=== PATIENT | female | born 1955 | race Caucasian/White ===

== ENCOUNTER → 2018-06-25 07:01 | Outpatient (CLI) | payer OTHER, SELFPAY ==
[2018-06-25 10:34] LABS: Erythrocyte Sedimentation Rate 19 mm/hr (0-30)
[2018-06-25 10:36] LABS: Absolute Lymphocyte Count 3.14 X10^3/ul (0.83-4.51); Absolute Neutrophil Count 2.2 X10^3/uL (2.0-7.7); Basophil# 0.06 X10^3/uL; Eosinophil# 0.43 X10^3/uL; Eosinophils% 6.9 % (0-5); Hematocrit 41.2 % (37-47); Hemoglobin 14.2 g/dl (12.0-15.0); Lymphocyte # 3.14 X10^3/ul (4.0); Lymphocyte % 50.6 % (19-41); Mean Corp Hgb Conc 34.5 g/gl (32-36); Mean Corpuscular Volume 86.9 fL (81-99); Mean Platelet Vol. 10.2 fl (6.2-12.0); Monocyte# 0.38 X10^3/uL; Monocyte% 6.1 % (0-10); Neutrophil % 35.4 % (47-70); Platelet Count 349 K/mm3 (150-450); RBC Distribution Width CV 12.7 % (11.6-14.6); RBC Distribution Width SD 39.6 fl (35.1-43.9); Red Blood Count 4.74 M/mm3 (4.2-5.4); White Blood Count 6.2 K/mm3 (4.4-11.0)
[2018-06-25 10:37] LABS: POSITIVE COUNT NO; POSITIVE DIFFERENTIAL NO; POSITIVE MORPHOLOGY NO
[2018-06-25 10:48] LABS: ALB/GLOB Ratio 0.9 RATIO (0.9-2.4); AST(SGOT) 18 U/L (15-37); Alanine Aminotransfer ALT/SGPT 28 U/L (13-56); Albumin, Serum 3.5 g/dL (3.2-5.0); Alkaline Phosphatase 65 U/L (45-117); Amylase 29 U/L (25-115); Anion Gap 9 (5-15); BUN 12 mg/dL (7-18); BUN/Creat Ratio 15.9 RATIO (10-20); Calcium,Total 9.3 mg/dL (8.5-10.1); Chloride 105 mmol/L (98-107); Cholesterol 218 mg/dL (200); Creatinine, Serum 0.76 mg/dL (0.55-1.02); EST Glomerular Filtration Rate 82 mL/min (>60); Est Glom Filt Rate - Afr Amer 100 mL/min (>60); Globulin 3.7 g/dL (2.2-4.2); Glucose 81 mg/dL (74-106); High Density Lipoprotein 49 mg/dL; Lipase 170 U/L (73-393); Potassium 3.9 mmol/L (3.5-5.1); Protein, Total 7.2 g/dL (6.4-8.2); Sodium Level 141 mmol/L (136-145); Triglycerides 211 mg/dL; Very Low Density Lipoprotein 42 mg/dL (5-40)
[2018-06-28 20:13] LABS: Endomysial Antibody IgA Negative (Negative)
[2018-06-29 13:12] LABS: Deamidated Gliadin IgA 3 units (0-19); Deamidated Gliadin IgG 3 units (0-19); Immunoglobulin A 233 mg/dL (87-352); t-Transglutaminase IgA <2 U/mL (0-3)
[2018-06-29 16:09] LABS: Beef <0.10 kU/L (Class 0); Corn <0.10 kU/L (Class 0); Egg, Whole <0.10 kU/L (Class 0); Milk (Cow) <0.10 kU/L (Class 0); Peanut <0.10 kU/L (Class 0); Pork <0.10 kU/L (Class 0); Soybean <0.10 kU/L (Class 0); Wheat <0.10 kU/L (Class 0)
[2018-06-30 11:00] LABS: Chocolate <0.10 kU/L (Class 0)
== END ==
PROVIDERS: Family Provider Family Medicine; PCP Family Medicine; Visit Provider Family Medicine
DX: E03.9 Hypothyroidism, unspecified (principal); E78.00 Pure hypercholesterolemia, unspecified; R14.0 Abdominal distension (gaseous)
CPT/HCPCS: 36415; 80053; 80061; 82150; 82784; 83516; 83690; 84443; 85025; 85652; 86003; 86005; 86255

== ENCOUNTER → 2018-07-20 14:05 | Outpatient (CLI) | payer OTHER, SELFPAY ==
[2018-07-23 14:21] LABS: HPV Reflexed? NOT INDICATED
== END ==
PROVIDERS: Visit Provider Obstetrics & Gynecology
DX: Z12.4 Encounter for screening for malignant neoplasm of cervix (principal)
CPT/HCPCS: 88175; G0145

== ENCOUNTER → 2018-10-15 07:11 | Outpatient (CLI) | payer OTHER, SELFPAY ==
--- NOTE | 2018-10-15 07:15 | BI_ITS ---
MAMMOGRAPHY - BILATERAL SCREENING REASON FOR EXAM: Female, 63 years old. Routine annual screening examination. PERTINENT HISTORY: Non-contributory. TECHNIQUE: Digital bilateral breast jerica (3D mammographic acquisition) in the CC and MLO projections. 2-D mediolateral oblique (MLO) and craniocaudad (CC) views of both breasts were obtained. CAD: Full Field Digital Mammography with Computer Added Detection was performed. COMPARISON: Comparison is made with prior study dated the 2016 and August 21, 2016. FINDINGS: Breast Composition: There are scattered areas of fibroglandular density. There are no dominant masses or suspicious calcifications. Stable small bilateral axillary lymph nodes. No other significant abnormalities are identified. There has been no significant change since the prior study. BI/SCREENING MAMM (CAD), BILAT IMPRESSION: Stable bilateral screening mammogram. Yearly follow-up mammogram recommended. (A) ASSESSMENT CATEGORY: BIRADS Category 2: Benign. A letter regarding these results will be sent to the patient by the facility within 30 days. Approximately 10% of breast cancers are not detected by mammography. A normal mammogram should not delay biopsy of a clinically suspicious abnormality. [id number] Electronically Signed: Ronn Groves MD at 9:32 EST Tel [phone], Service support ,
== END ==
PROVIDERS: Family Provider Family Medicine; PCP Family Medicine; Referring Provider Obstetrics & Gynecology; Visit Provider Obstetrics & Gynecology
DX: Z12.31 Encounter for screening mammogram for malignant neoplasm of breast (principal)
CPT/HCPCS: 77063; 77067

== ENCOUNTER → 2019-07-01 | Outpatient (CLI) | payer OTHER, SELFPAY ==
[2019-07-01 10:36] LABS: Vitamin D,25 Hydroxy 21.3 ng/mL (29.95-100.01)
[2019-07-01 10:50] LABS: ALB/GLOB Ratio 0.9 RATIO (0.9-2.4); AST(SGOT) 17 U/L (15-37); Alanine Aminotransfer ALT/SGPT 25 U/L (13-56); Albumin, Serum 3.6 g/dL (3.2-5.0); Alkaline Phosphatase 69 U/L (45-117); Anion Gap 4 (5-15); BUN 16 mg/dL (7-18); Calcium,Total 9.3 mg/dL (8.5-10.1); Chloride 110 mmol/L (98-107); Cholesterol 238 mg/dL (200); Creatinine, Serum 0.84 mg/dL (0.55-1.02); EST Glomerular Filtration Rate 72 mL/min (>60); Est Glom Filt Rate - Afr Amer 88 mL/min (>60); Globulin 4.1 g/dL (2.2-4.2); Glucose 91 mg/dL (74-106); High Density Lipoprotein 56 mg/dL; Potassium 4.2 mmol/L (3.5-5.1); Protein, Total 7.7 g/dL (6.4-8.2); Sodium Level 141 mmol/L (136-145); T4 Free Direct 1.07 ng/dL (0.76-1.46); Thyroid Stim Hormone (TSH) 0.87 uIU/mL (0.358-3.74); Triglycerides 202 mg/dL; Very Low Density Lipoprotein 40 mg/dL (5-40)
== END | disposition home or self-care (01) ==
LOC: MTLAB 08:24
PROVIDERS: Family Provider Family Medicine; PCP Family Medicine; Referring Provider Family Medicine; Visit Provider Family Medicine
DX: E78.00 Pure hypercholesterolemia, unspecified (principal); E03.9 Hypothyroidism, unspecified; Z13.21 Encounter for screening for nutritional disorder
CPT/HCPCS: 36415; 80053; 80061; 82306; 84439; 84443

== ENCOUNTER → 2019-10-31 06:55 | Outpatient (CLI) | payer OTHER, SELFPAY ==
--- NOTE | 2019-10-31 06:59 | BI_ITS ---
MAMMOGRAPHY - BILATERAL SCREENING REASON FOR EXAM: Female, 64 years old. Routine annual screening examination. PERTINENT HISTORY: Non-contributory. TECHNIQUE: Digital bilateral breast gary (3D mammographic acquisition) in the CC and MLO projections. 2-D mediolateral oblique (MLO) and craniocaudad (CC) views of both breasts were obtained. CAD: Full Field Digital Mammography with Computer Added Detection was performed. COMPARISON: Comparison is made with prior examination dated October 15, 2018 and September 01, 2017. FINDINGS: Breast Composition: There are scattered areas of fibroglandular density. There are no dominant masses or suspicious calcifications. No other significant abnormalities are identified. There has been no significant change since the prior study. BI/SCREEN MAMM (CAD) W/GARY BILAT IMPRESSION: Stable bilateral screening mammogram. Yearly follow-up mammogram recommended. (A) ASSESSMENT CATEGORY: BIRADS Category 1: Negative. A letter regarding these results will be sent to the patient by the facility within 30 days. Approximately 10% of breast cancers are not detected by mammography. A normal mammogram should not delay biopsy of a clinically suspicious abnormality. [id number] Electronically Signed: Ronn Groves, at 8:26 EST , Service support ,
== END ==
PROVIDERS: Family Provider Family Medicine; PCP Family Medicine; Referring Provider Obstetrics & Gynecology; Visit Provider Obstetrics & Gynecology
DX: Z12.31 Encounter for screening mammogram for malignant neoplasm of breast (principal)
CPT/HCPCS: 77063; 77067

== ENCOUNTER → 2020-07-02 | Outpatient (CLI) | payer OTHER, SELFPAY ==
[2020-07-02 13:00] LABS: Hematocrit 41.4 % (37-47); Hemoglobin 13.9 g/dL (12.0-15.0); Mean Corp Hgb Conc 33.6 g/dL (32-36); Mean Corpuscular Hgb 29.6 pg (27.0-32.0); Mean Corpuscular Volume 88.3 fL (81-99); Mean Platelet Vol. 10.4 fl (6.2-12.0); Platelet Count 303 K/mm3 (150-450); RBC Distribution Width CV 12.5 % (11.6-14.6); RBC Distribution Width SD 40.3 fl (35.1-43.9); Red Blood Count 4.69 M/mm3 (4.2-5.4); White Blood Count 6.1 K/mm3 (4.4-11.0)
[2020-07-02 13:33] LABS: AST(SGOT) 16 U/L (15-37); Alanine Aminotransfer ALT/SGPT 25 U/L (13-56); Albumin, Serum 3.6 g/dL (3.2-5.0); Alkaline Phosphatase 69 U/L (45-117); Anion Gap 8 (5-15); BUN 15 mg/dL (7-18); BUN/Creat Ratio 20.4 RATIO (10-20); Calcium,Total 9.5 mg/dL (8.5-10.1); Chloride 110 mmol/L (98-107); Cholesterol 205 mg/dL (200); Creatinine, Serum 0.73 mg/dL (0.55-1.02); EST Glomerular Filtration Rate 85 mL/min (>60); Est Glom Filt Rate - Afr Amer 102 mL/min (>60); Globulin 3.7 g/dL (2.2-4.2); Glucose 88 mg/dL (74-106); High Density Lipoprotein 52 mg/dL; Potassium 3.9 mmol/L (3.5-5.1); Protein, Total 7.3 g/dL (6.4-8.2); Sodium Level 144 mmol/L (136-145); Thyroid Stim Hormone (TSH) 0.22 uIU/mL (0.358-3.74); Triglycerides 161 mg/dL; Very Low Density Lipoprotein 32 mg/dL (5-40)
== END | disposition home or self-care (01) ==
LOC: MFPLAB 10:51
PROVIDERS: PCP Family Medicine; Referring Provider Family Medicine; Visit Provider Family Medicine
DX: E55.9 Vitamin D deficiency, unspecified (principal); E03.9 Hypothyroidism, unspecified; K44.9 Diaphragmatic hernia without obstruction or gangrene; E78.00 Pure hypercholesterolemia, unspecified
CPT/HCPCS: 36415; 80053; 80061; 82306; 84443; 85027

== ENCOUNTER → 2020-08-01 09:05 | Outpatient (CLI) | payer OTHER, SELFPAY | PROVIDERS: PCP Family Medicine; Referring Provider Internal Medicine Gastroenterology; Visit Provider Internal Medicine Gastroenterology | DX: Z11.59 Encounter for screening for other viral diseases (principal) | CPT/HCPCS: 87635; C9803; U0003 ==

== ENCOUNTER → 2021-03-20 07:37 | Outpatient (CLI) | payer OTHER, SELFPAY ==
--- NOTE | 2021-03-20 07:39 | BI_ITS ---
MAMMOGRAPHY - BILATERAL SCREENING REASON FOR EXAM: Female, 65 years old. Routine annual screening examination. PERTINENT HISTORY: Non-contributory. TECHNIQUE: Digital bilateral breast jerica (3D mammographic acquisition) in the CC and MLO projections. 2-D mediolateral oblique (MLO) and craniocaudad (CC) views of both breasts were obtained. CAD: Full Field Digital Mammography with Computer Added Detection was performed. COMPARISON: Comparison is made with prior study dated 04/30/2020 and 10/15/2018. FINDINGS: Breast Composition: There are scattered areas of fibroglandular density. There are no dominant masses or suspicious calcifications. Stable small benign-appearing bilateral axillary lymph nodes. No other significant abnormalities are identified. There has been no significant change since the prior study. BI/SCREENING MAMM (CAD), BILAT IMPRESSION: Stable bilateral screening mammogram. Yearly follow-up mammogram recommended. (A) ASSESSMENT CATEGORY: BIRADS Category 2: Benign. A letter regarding these results will be sent to the patient by the facility within 30 days. Approximately 10% of breast cancers are not detected by mammography. A normal mammogram should not delay biopsy of a clinically suspicious abnormality. [id number] Electronically Signed: Ronn Groves MD at 8:54 EDT , Service support ,
== END ==
PROVIDERS: PCP Family Medicine; Referring Provider Family Medicine; Visit Provider Family Medicine
DX: Z12.31 Encounter for screening mammogram for malignant neoplasm of breast (principal)
CPT/HCPCS: 77067

== ENCOUNTER → 2021-08-02 07:58 | Outpatient (CLI) | payer OTHER, SELFPAY ==
[2021-08-02 10:20] LABS: Vitamin D,25 Hydroxy 66.8 ng/mL
[2021-08-02 10:45] LABS: ALB/GLOB Ratio 0.9 RATIO (0.9-2.4); AST(SGOT) 16 U/L (15-37); Alanine Aminotransfer ALT/SGPT 20 U/L (13-56); Albumin, Serum 3.4 g/dL (3.2-5.0); Alkaline Phosphatase 75 U/L (45-117); Anion Gap 6 (5-15); BUN 15 mg/dL (7-18); Calcium,Total 9.5 mg/dL (8.5-10.1); Chloride 109 mmol/L (98-107); Cholesterol 215 mg/dL (200); Creatinine, Serum 0.84 mg/dL (0.55-1.02); EST Glomerular Filtration Rate 73 mL/min (>60); Est Glom Filt Rate - Afr Amer 88 mL/min (>60); Globulin 3.9 g/dL (2.2-4.2); Glucose 99 mg/dL (74-106); High Density Lipoprotein 57 mg/dL; Potassium 4.2 mmol/L (3.5-5.1); Protein, Total 7.3 g/dL (6.4-8.2); Sodium Level 141 mmol/L (136-145); T4 Free Direct 1.26 ng/dL (0.76-1.46); Thyroid Stim Hormone (TSH) 0.44 uIU/mL (0.358-3.74); Triglycerides 145 mg/dL; Very Low Density Lipoprotein 29 mg/dL (5-40)
== END ==
PROVIDERS: PCP Family Medicine; Referring Provider Family Medicine; Visit Provider Family Medicine
DX: E03.9 Hypothyroidism, unspecified (principal); E78.00 Pure hypercholesterolemia, unspecified; E55.9 Vitamin D deficiency, unspecified
CPT/HCPCS: 36415; 80053; 80061; 82306; 84439; 84443

== ENCOUNTER → 2021-08-14 09:17 | Outpatient (CLI) | payer OTHER, SELFPAY ==
--- NOTE | 2021-08-14 09:24 | BD_ITS ---
STUDY: DUAL ENERGY X-RAY ABSORPTIOMETRY / DXA REASON FOR EXAM: Female, 65 years old. Z780. The patient is postmenopausal. TECHNIQUE: Bone Mineral Density (BMD) measurements of lumbar spine and bilateral hips were obtained. COMPARISON: Comparison is made with prior examination dated 08/21/2016. FINDINGS: Lumbar Spine (L1-L4): g/cm2 (0.867) / T-score (-1.6) / Z-score (0.2) Findings are suggestive of osteopenia with a moderate fracture risk. Left Femur Total: g/cm2 (0.872) / T-score (-0.6) / Z-score (0.7) Left Femoral Neck: g/cm2 (0.710) / T-score (-1.3) / Z-score (0.3) Right Femur Total: g/cm2 (0.901) / T-score (-0.3) / Z-score (0.9) Right Femoral Neck: g/cm2 (0.763) / T-score (-0.8) / Z-score (0.8) The T-Scores on the most recent prior examination were: Lumbar Spine (L1-L4): There has been worsening of bone density since the previous examination. Left Femur Total: which represents a worsening of 2.6%. Right Femur Total: which represents a worsening of 1.9%. BD/Dexa Bone Density Study IMPRESSION: The patient is considered osteopenic as outlined below according to World Jackson Organization (WHO) criteria with a moderate fracture risk. There has been worsening of bone density since the previous examination. Reference Information: The T-score is the number of standard deviations above or below the standard which is normal for young adults at their peak bone mineral density. The World Health Organization (WHO) interprets the T-scores as follows: Above -1 Normal bone density Between -1 and -2.5 Osteopenia Equal to / or below -2.5 Osteoporosis As a practical clinical guideline, osteopenia may be graded as follows: Mild -1 through -1.5 Moderate -1.6 through -2.0 Severe -2.1 through -2.4 The Z-score is the number of standard deviations above or below age-matched controls. A Z-score of less than -1.5 would be considered abnormal. References: 1. NIH Osteoporosis and Related Bone Diseases www osteo.org 2. International Society for Clinical Densitometry www iscd.org 3. National Osteoporosis Foundation www nof.org Electronically Signed: Ronn Groves MD at 12:33 EDT , Service support ,
== END ==
PROVIDERS: PCP Family Medicine; Referring Provider Family Medicine; Visit Provider Family Medicine
DX: Z00.00 Encounter for general adult medical examination without abnormal findings (principal); Z78.0 Asymptomatic menopausal state
CPT/HCPCS: 77080

== ENCOUNTER → 2021-09-12 | Outpatient (CLI) | payer OTHER, SELFPAY ==
[2021-09-17 12:07] LABS: HPV APTIMA, High Risk Negative (Negative)
== END | disposition home or self-care (01) ==
LOC: LABSPEC 12:17
PROVIDERS: PCP Family Medicine; Visit Provider Obstetrics & Gynecology
DX: Z01.419 Encounter for gynecological examination (general) (routine) without abnormal findings (principal)
CPT/HCPCS: 87624; 88175; G0145

== ENCOUNTER → 2022-08-04 | Outpatient (CLI) | payer OTHER, SELFPAY ==
[2022-08-04 10:39] LABS: Vitamin D,25 Hydroxy 57.5 ng/mL
[2022-08-04 10:44] LABS: BUN 20 mg/dL (7-18); Creatinine, Serum 0.73 mg/dL (0.55-1.02); Glucose 96 mg/dL (74-106)
[2022-08-04 10:45] LABS: AST(SGOT) 18 U/L (15-37); Alanine Aminotransfer ALT/SGPT 25 U/L (13-56); Albumin, Serum 3.5 g/dL (3.2-5.0); Alkaline Phosphatase 68 U/L (45-117); Anion Gap 6 (5-15); BUN/Creat Ratio 27.3 RATIO (10-20); Calcium,Total 9.3 mg/dL (8.5-10.1); Chloride 111 mmol/L (98-107); Cholesterol 194 mg/dL (200); EST Glomerular Filtration Rate 84 mL/min (>60); Est Glom Filt Rate - Afr Amer 102 mL/min (>60); Globulin 3.5 g/dL (2.2-4.2); High Density Lipoprotein 56 mg/dL; Potassium 3.9 mmol/L (3.5-5.1); Sodium Level 142 mmol/L (136-145); T4 Free Direct 1.25 ng/dL (0.76-1.46); Thyroid Stim Hormone (TSH) 0.13 uIU/mL (0.358-3.74); Triglycerides 179 mg/dL; Very Low Density Lipoprotein 36 mg/dL (5-40)
== END | disposition home or self-care (01) ==
PROVIDERS: PCP Family Medicine; Visit Provider Family Medicine
DX: E78.00 Pure hypercholesterolemia, unspecified (principal); E03.9 Hypothyroidism, unspecified; E55.9 Vitamin D deficiency, unspecified
CPT/HCPCS: 36415; 80053; 80061; 82306; 84439; 84443

== ENCOUNTER → 2022-08-12 | Outpatient (CLI) | payer OTHER, SELFPAY ==
--- NOTE | 2022-08-12 16:42 | BI_ITS ---
MAMMOGRAPHY - BILATERAL SCREENING REASON FOR EXAM: Female, 66 years old. Routine annual screening examination. PERTINENT HISTORY: Non-contributory. TECHNIQUE: Digital bilateral breast gary (3D mammographic acquisition) in the CC and MLO projections. 2-D mediolateral oblique (MLO) and craniocaudad (CC) views of both breasts were obtained. CAD: Full Field Digital Mammography with Computer Added Detection was performed. COMPARISON: Comparison is made with prior study dated 03/20/2021 and 10/31/2019. FINDINGS: Breast Composition: There are scattered areas of fibroglandular density. There are no dominant masses or suspicious calcifications. Stable small benign-appearing bilateral axillary No other significant abnormalities are identified. There has been no significant change since the prior study. BI/SCRN MAMM (CAD)W/GARY BILAT IMPRESSION: Stable bilateral screening mammogram. Yearly follow-up mammogram recommended. (A) ASSESSMENT CATEGORY: BIRADS Category 2: Benign. A letter regarding these results will be sent to the patient by the facility within 30 days. Approximately 10% of breast cancers are not detected by mammography. A normal mammogram should not delay biopsy of a clinically suspicious abnormality. [id number] Electronically Signed: Ronn Groves MD at 8:37 EDT ,
== END | disposition home or self-care (01) ==
LOC: OPBI 08-13 07:05
PROVIDERS: PCP Family Medicine; Referring Provider Family Medicine; Visit Provider Family Medicine
DX: Z12.31 Encounter for screening mammogram for malignant neoplasm of breast (principal)
CPT/HCPCS: 77063; 77067

== ENCOUNTER → 2023-04-28 | Outpatient (CLI) | payer OTHER, SELFPAY ==
[2023-04-28 15:17] LABS: Absolute Lymphocyte Count 3.26 X10^3/uL (0.83-4.51); Absolute Neutrophil Count 3.5 X10^3/uL (2.0-7.7); Basophil# 0.09 X10^3/uL; Basophil% 1.2 % (0-1); Eosinophil# 0.24 X10^3/uL; Eosinophils% 3.1 % (0-5); Hematocrit 41.8 % (37-47); Hemoglobin 13.6 g/dL (12.0-15.0); Lymphocyte # 3.26 X10^3/ul (0.83-4.51); Lymphocyte % 42.6 % (19-41); Mean Corp Hgb Conc 32.5 g/dL (32-36); Mean Corpuscular Hgb 29.1 pg (27.0-32.0); Mean Corpuscular Volume 89.5 fL (81-99); Mean Platelet Vol. 10.1 fl (6.2-12.0); Monocyte# 0.57 X10^3/uL; Monocyte% 7.4 % (0-10); NRBC Flagged by Analyzer 0 % (0-5); Neutrophil # 3.49 X10^3/uL (2.7-7.7); Neutrophil % 45.6 % (47-70); Platelet Count 331 K/mm3 (150-450); RBC Distribution Width CV 12.7 % (11.6-14.6); RBC Distribution Width SD 41.6 fl (35.1-43.9); Red Blood Count 4.67 M/mm3 (4.2-5.4); White Blood Count 7.7 K/mm3 (4.4-11.0)
[2023-04-28 15:35] LABS: Erythrocyte Sedimentation Rate 14 mm/hr (0-30)
[2023-04-28 15:44] LABS: AST(SGOT) 18 U/L (15-37); Alanine Aminotransfer ALT/SGPT 23 U/L (13-56); Albumin, Serum 3.7 g/dL (3.2-5.0); Alkaline Phosphatase 68 U/L (45-117); Amylase 30 U/L (25-115); Anion Gap 5 (5-15); BUN 14 mg/dL (7-18); BUN/Creat Ratio 18.8 RATIO (10-20); Calcium,Total 9.4 mg/dL (8.5-10.1); Chloride 109 mmol/L (98-107); Creatinine, Serum 0.74 mg/dL (0.55-1.02); EST Glomerular Filtration Rate 83 mL/min (>60); Est Glom Filt Rate - Afr Amer 100 mL/min (>60); Globulin 3.6 g/dL (2.2-4.2); Glucose 76 mg/dL (74-106); Lipase 38 U/L (13-75); Protein, Total 7.3 g/dL (6.4-8.2); Sodium Level 141 mmol/L (136-145); Thyroid Stim Hormone (TSH) 0.12 uIU/mL (0.358-3.74)
[2023-04-29 16:33] LABS: T4 Free Direct 1.23 ng/dL (0.76-1.46)
[2023-04-30 05:07] LABS: H. Pylori Antibody (IgG) 0.16 (0.00-0.79)
[2023-04-30 10:27] LABS: Free T3 2.6 pg/mL (2.18-3.98)
[2023-05-02 00:06] LABS: Beef <0.10 kU/L (Class 0); Chocolate <0.10 kU/L (Class 0); Corn <0.10 kU/L (Class 0); Egg, Whole <0.10 kU/L (Class 0); Milk (Cow) <0.10 kU/L (Class 0); Peanut <0.10 kU/L (Class 0); Pork <0.10 kU/L (Class 0); Soybean <0.10 kU/L (Class 0); Wheat <0.10 kU/L (Class 0)
== END | disposition home or self-care (01) ==
LOC: MFPLAB 12:26
PROVIDERS: PCP Family Medicine; Visit Provider Family Medicine
DX: R10.9 Unspecified abdominal pain (principal); E03.9 Hypothyroidism, unspecified
CPT/HCPCS: 36415; 80053; 82150; 83690; 84439; 84443; 84480; 84481; 85025; 85652; 86003; 86005; 86677

== ENCOUNTER → 2023-04-30 | Outpatient (CLI) | payer OTHER, SELFPAY ==
[2023-05-05 14:19] LABS: Pancreatic Elastase, Fecal 95 (>200)
== END | disposition home or self-care (01) ==
LOC: MFPLAB 09:46
PROVIDERS: PCP Family Medicine; Visit Provider Family Medicine
DX: R19.5 Other fecal abnormalities (principal)
CPT/HCPCS: 82274; 82653; 83630; 87177; 87209; 87506

== ENCOUNTER → 2023-08-07 | Outpatient (CLI) | payer MEDICARE, SELFPAY ==
[2023-08-07 10:55] LABS: ALB/GLOB Ratio 0.9 RATIO (0.9-2.4); AST(SGOT) 13 U/L (15-37); Alanine Aminotransfer ALT/SGPT 24 U/L (13-56); Albumin, Serum 3.4 g/dL (3.2-5.0); Alkaline Phosphatase 72 U/L (45-117); Anion Gap 3 (5-15); BUN 15 mg/dL (7-18); BUN/Creat Ratio 19.2 RATIO (10-20); Chloride 111 mmol/L (98-107); Cholesterol 180 mg/dL (200); Creatinine, Serum 0.78 mg/dL (0.55-1.02); EST Glomerular Filtration Rate 78 mL/min (>60); Est Glom Filt Rate - Afr Amer 94 mL/min (>60); Free T3 2.6 pg/mL (2.18-3.98); Globulin 3.6 g/dL (2.2-4.2); Glucose 98 mg/dL (74-106); High Density Lipoprotein 50 mg/dL; Potassium 3.8 mmol/L (3.5-5.1); Sodium Level 137 mmol/L (136-145); T4 Free Direct 1.26 ng/dL (0.76-1.46); Thyroid Stim Hormone (TSH) 0.23 uIU/mL (0.358-3.74); Triglycerides 167 mg/dL; Very Low Density Lipoprotein 33 mg/dL (5-40)
== END | disposition home or self-care (01) ==
PROVIDERS: PCP Family Medicine; Visit Provider Family Medicine
DX: E03.9 Hypothyroidism, unspecified (principal); E78.00 Pure hypercholesterolemia, unspecified; M85.80 Other specified disorders of bone density and structure, unspecified site
CPT/HCPCS: 36415; 80053; 80061; 82306; 84439; 84443; 84481

== ENCOUNTER → 2023-08-27 | Outpatient (CLI) | payer MEDICARE, SELFPAY ==
--- NOTE | 2023-08-27 13:25 | BI_ITS ---
MAMMOGRAPHY - BILATERAL SCREENING REASON FOR EXAM: Female, 67 years old. Routine annual screening examination. PERTINENT HISTORY: Non-contributory. TECHNIQUE: Digital bilateral breast gary (3D mammographic acquisition) in the CC and MLO projections. 2-D mediolateral oblique (MLO) and craniocaudad (CC) views of both breasts were obtained. CAD: Full Field Digital Mammography with Computer Added Detection was performed. COMPARISON: Comparison is made with prior study dated August 12, 2022. FINDINGS: Breast Composition: There are scattered areas of fibroglandular density. There are no dominant masses or suspicious calcifications. No other significant abnormalities are identified. There has been no significant change since the prior study. BI/SCRN MAMM (CAD)W/GARY BILAT IMPRESSION: Stable bilateral screening mammogram. Yearly follow-up mammogram recommended. (A) ASSESSMENT CATEGORY: BIRADS Category 1: Negative. A letter regarding these results will be sent to the patient by the facility within 30 days. Approximately 10% of breast cancers are not detected by mammography. A normal mammogram should not delay biopsy of a clinically suspicious abnormality. [id number] Electronically Signed: Ronn Groves MD at 14:17 EST ,
--- NOTE | 2023-08-27 13:32 | BD_ITS ---
STUDY: DUAL ENERGY X-RAY ABSORPTIOMETRY / DXA REASON FOR EXAM: Female, 67 years old. Z780 TECHNIQUE: Bone Mineral Density (BMD) measurements of lumbar spine and bilateral hips were obtained. COMPARISON: Comparison is made with prior study dated August 14, 2021. FINDINGS: Lumbar Spine (L1-L4): g/cm2 (0.857) / T-score (-1.8) / Z-score (0.2) Findings are suggestive of osteopenia with a moderate fracture risk. Left Femur Total: g/cm2 (0.864) / T-score (-0.6) / Z-score (0.7) Left Femoral Neck: g/cm2 (0.741) / T-score (-1.0) / Z-score (0.7) Right Femur Total: g/cm2 (0.899) / T-score (-0.4) / Z-score (1.0) Right Femoral Neck: g/cm2 (0.753) / T-score (-0.9) / Z-score (0.8) The T-Scores on the most recent prior examination were: Lumbar Spine (L1-L4): There has been worsening of bone density since the previous examination. Left Femur Total: which represents a worsening of 0.8%. Right Femur Total: which represents a worsening of 0.3%. BD/Dexa Bone Density Study IMPRESSION: The patient is considered osteopenic as outlined below according to World Jackson Organization (WHO) criteria with a moderate fracture risk. There has been worsening of bone density since the previous examination. Reference Information: The T-score is the number of standard deviations above or below the standard which is normal for young adults at their peak bone mineral density. The World Health Organization (WHO) interprets the T-scores as follows: Above -1 Normal bone density Between -1 and -2.5 Osteopenia Equal to / or below -2.5 Osteoporosis As a practical clinical guideline, osteopenia may be graded as follows: Mild -1 through -1.5 Moderate -1.6 through -2.0 Severe -2.1 through -2.4 The Z-score is the number of standard deviations above or below age-matched controls. A Z-score of less than -1.5 would be considered abnormal. References: 1. NIH Osteoporosis and Related Bone Diseases www osteo.org 2. International Society for Clinical Densitometry www iscd.org 3. National Osteoporosis Foundation www nof.org Electronically Signed: Ronn Groves MD at 15:23 EST ,
== END | disposition home or self-care (01) ==
LOC: OPBD 13:22
PROVIDERS: PCP Family Medicine; Referring Provider Obstetrics & Gynecology; Visit Provider Obstetrics & Gynecology
DX: Z12.31 Encounter for screening mammogram for malignant neoplasm of breast (principal); Z78.0 Asymptomatic menopausal state
CPT/HCPCS: 77063; 77067; 77080

== ENCOUNTER 2023-09-21 08:30 | Outpatient (RCR) | payer MEDICARE, SELFPAY ==
--- NOTE | 2023-08-14 09:53 | HP.PTEVAL_ITS ---
Patient's Visit Information Visit Information Visit Information: OBDULIO LOPEZ is a 67 year old F referred to Physical Therapy by Dr. Miles Peguero MD with a diagnosis of L piriformis syndrome. Date of Evaluation: 08/14/23 Physical Therapist: Quang Cuevas, DPT, OCS, CSCS Visit Plan Frequency: 2x /Week Duration: 4-6 Weeks Plan: 2x/week for 4 weeks for 1. If needed US adn stm to L piriformis and ITB, stretch same 2. strengthening exrcises to B hips and core to HEP 3. Progress to gym exercises for overall body to i membership program as tolerated. Subjective Subjective: Sit to stand is stiff and cannot just walk off becuase hip feels like it could snap. Doctor gave her ex which helps. Has dull ache down Lateral L leg and into calf intermittently worse and sometime keeping her up at night. Going up stairs it can hurt. HEP: SKC, hip ROM. Overall hip is loosened up but leg pain persists. Stepping on ball of feet can give her that sharp pain. Watche sgrandkids and planting foot in car can give sharp pain. Poor mobility due to this pain. No LBP. Walks 5x week 4 miles, does not bother her. Not employed. Spends day looking after 17 mo old boy playing on floor and getting up off floor is worse. Pain l leg: Pain Intensity (Out of 10): 1 Pain Intensity Range: 1 and 3 Objective Objective: Wallks I and easily into PT with just mild ache l ITb area. Trans fers slow and hesitant but I bed and chair. Steps reciprocal with no rail but L ITB pain ascending. Tender to touch L GT and ITB and into piriformis moderately. Tightness in B HS and quads min and piriformis with pain L and ITB B moderately. Hip weakness in abductors, rotators L >R with pain in abd . 3+. hip flexion 4- B. extension 4- R and 3+ L. knee strength ext and flexion 4/5, ankle strength 4/5. reflexes 2/3 patella and achilles Sensation LE WNL to gross light touch. - FADDIR, + FABERS L only in lateral ITB pain. Balance/Special Test Scores Lower Extremity Functional Score: 63 Goals Goal 1:: Pain in L leg 85% better and 1/10 at worst Goal Time Frame: 2-4 Weeks Goal 2:: Patient walk up steps without pain Goal Time Frame: 2-4 Weeks Goal 3:: sleep without waking consistently Goal Time Frame: 2-4 Weeks Goal 4:: LEFS 72 Goal Time Frame: 4-6 Weeks Rehabilitation Potential Physical Therapy Diagnosis: L leg pain limiting funciton likely piriformis vs ITB Rehabilitation Potential: Good Anticipated Interventions Patient/Client Instruction: Educate patient on: Condition For the Purpose of:: To decrease pain, To increase ROM, To improve nutrient delivery to tissue and To improve muscle performance and motor function Therapeutic Exercise to Include: Strength training, Flexibilty training, Passive ROM, Active ROM and Dynamic Lumbar Stabilization For the Purpose of:: To decrease pain, To increase ROM, To improve nutrient delivery to tissue, To improve muscle performance and motor function and To increase tolerance to activity/condition/position Manual Therapy Techniques to Include: Soft tissue mobilization For the Purpose of:: To decrease pain Ultrasound (thermal/non thermal): Yes (nonthermal GT area L) For the Purpose of:: To decrease pain and To decrease swelling/inflammation Text: Thank you for the opportunity to evaluate your patient. For Medicare and Medicare HMO plans, please review the plan of care and approve it. It will need to be FAXED BACK to us at [phone] for Medicare purposes. For Medicare only, by signing this I certify the plan of care. Please let me know if there are questions or concerns regarding this plan of c are. Physician Signature: Date:
--- NOTE | 2023-09-21 08:52 | HP.PTDCSUM ---
Discharge Summary D/C summary: It has been my pleasure to treat OBDULIO LOPEZ referred by Dr. Miles Peguero MD, with the diagnosis of L piriformis syndrome for a total of 10 visit(s). Discharge Date: 09/21/23 Please see the following information for a summary of their discharge status. Subjective Subjective: Feeling pretty good lately. This weekend had no pain. Sometimes down lateral leg is tender awareness but not annoying. Activities at home are normal. Squatted with grandson this weekend without a problem. No f/u with doctor. HEP going well daily. Walked 4 miles 5 days per week and feels Ok afterwards. Pain l leg: Pain Intensity (Out of 10): 2 Overall Improvement % Improvement: 80 Objective Objective/Function: Walking and steps without antalgia or pain. No rail needed. Marches and butt kicks without issues. Heel raises pain free. Goals Goal 1:: Pain in L leg 85% better and 1/10 at worst Goal Progress: 80% Goal 2:: Patient walk up steps without pain Goal Progress: Goal Met Goal 3:: sleep without waking consistently Goal Progress: Goal Met Goal 4:: LEFS 72 Goal Progress: Progressing Plan Plan: d/c to HEp adn gym D/C Information d/c sentence: If there are questions or concerns regarding this patient's physical therapy, please feel free to call me at [phone]. Thank you for the referral of this patient. Sincerely, Quang Cuevas, DPT, OCS, CSCS Balance/Gait/Functional tests Balance/Special Test Scores Lower Extremity Functional Score: 57 Improvement % Improvement: 80
== END 2023-09-21 19:00 | disposition home or self-care (01) ==
LOC: PT 08:30
PROVIDERS: PCP Family Medicine; Referring Provider Family Medicine; Visit Provider Family Medicine
DX: M99.05 Segmental and somatic dysfunction of pelvic region (principal)
CPT/HCPCS: 97035; 97110; 97161; 97164; J7030; A4216

== ENCOUNTER → 2023-12-07 | Outpatient (CLI) | payer MEDICARE, SELFPAY ==
[2023-12-07 10:44] LABS: Thyroid Stim Hormone (TSH) 2.07 uIU/mL (0.358-3.74)
== END | disposition home or self-care (01) ==
LOC: MFPLAB 08:28
PROVIDERS: PCP Family Medicine; Visit Provider Family Medicine
DX: E03.9 Hypothyroidism, unspecified (principal)
CPT/HCPCS: 36415; 84443

== ENCOUNTER → 2024-08-09 | Outpatient (CLI) | payer MEDICARE, SELFPAY ==
[2024-08-09 15:43] LABS: Cholesterol 229 mg/dL (200); Glucose 91 mg/dL (74-106); High Density Lipoprotein 54 mg/dL; Triglycerides 220 mg/dL; Very Low Density Lipoprotein 44 mg/dL (5-40)
[2024-08-09 15:47] LABS: ALB/GLOB Ratio 0.9 RATIO (0.9-2.4); AST(SGOT) 14 U/L (15-37); Alanine Aminotransfer ALT/SGPT 20 U/L (13-56); Albumin, Serum 3.6 g/dL (3.2-5.0); Alkaline Phosphatase 67 U/L (45-117); Anion Gap 4 (5-15); BUN 21 mg/dL (7-18); BUN/Creat Ratio 25.2 RATIO (10-20); Calcium,Total 9.8 mg/dL (8.5-10.1); Chloride 106 mmol/L (98-107); Cholesterol 223 mg/dL (200); Creatinine, Serum 0.83 mg/dL (0.55-1.02); EST Glomerular Filtration Rate 72 mL/min (>60); Est Glom Filt Rate - Afr Amer 87 mL/min (>60); Globulin 3.9 g/dL (2.2-4.2); Glucose 90 mg/dL (74-106); High Density Lipoprotein 54 mg/dL; Potassium 4.3 mmol/L (3.5-5.1); Protein, Total 7.5 g/dL (6.4-8.2); Sodium Level 139 mmol/L (136-145); T4 Free Direct 1.09 ng/dL (0.76-1.46); Triglycerides 220 mg/dL; Very Low Density Lipoprotein 44 mg/dL (5-40)
[2024-08-09 15:48] LABS: Vitamin D,25 Hydroxy 34.8 ng/mL
== END | disposition home or self-care (01) ==
LOC: MFPLAB 11:23
PROVIDERS: PCP Family Medicine; Referring Provider Family Medicine; Visit Provider Family Medicine
DX: Z00.00 Encounter for general adult medical examination without abnormal findings (principal); E78.00 Pure hypercholesterolemia, unspecified; E03.9 Hypothyroidism, unspecified; K86.89 Other specified diseases of pancreas
CPT/HCPCS: 36415; 80053; 80061; 82306; 82947; 84439; 84443

== ENCOUNTER → 2024-09-14 | Outpatient (CLI) | payer MEDICARE, SELFPAY ==
--- NOTE | 2024-09-14 07:37 | BI_ITS ---
MAMMOGRAPHY - BILATERAL SCREENING REASON FOR EXAM: Female, 68 years old. Routine annual screening examination. PERTINENT HISTORY: Non-contributory. TECHNIQUE: Digital bilateral breast gary (3D mammographic acquisition) in the CC and MLO projections. 2-D mediolateral oblique (MLO) and craniocaudad (CC) views of both breasts were obtained. CAD: Full Field Digital Mammography with Computer Added Detection was performed. COMPARISON: Comparison is made with prior study dated August 27, 2023 and August 12, 2022. FINDINGS: Breast Composition: There are scattered areas of fibroglandular density. There are no dominant masses or suspicious calcifications. No other significant abnormalities are identified. There has been no significant change since the prior study. BI/SCRN MAMM (CAD)W/GARY BILAT IMPRESSION: Stable bilateral screening mammogram. Yearly follow-up mammogram recommended. (A) ASSESSMENT CATEGORY: BIRADS Category 1: Negative. A letter regarding these results will be sent to the patient by the facility within 30 days. Approximately 10% of breast cancers are not detected by mammography. A normal mammogram should not delay biopsy of a clinically suspicious abnormality. [id number] Electronically Signed: Ronn Groves MD at 8:47 EST ,
== END | disposition home or self-care (01) ==
LOC: OPBI 07:37
PROVIDERS: PCP Family Medicine; Referring Provider Obstetrics & Gynecology; Visit Provider Obstetrics & Gynecology
DX: Z12.31 Encounter for screening mammogram for malignant neoplasm of breast (principal)
CPT/HCPCS: 77063; 77067

== ENCOUNTER → 2025-08-14 | Outpatient (CLI) | payer MEDICARE, SELFPAY ==
[2025-08-14 10:36] LABS: AST(SGOT) 23 U/L (<=31); Alanine Aminotransfer ALT/SGPT 20 U/L (<=34); Albumin, Serum 4.3 g/dL (3.4-4.8); Alkaline Phosphatase 66 U/L (35-104); Anion Gap 11 (5-15); BUN 16 mg/dL (4-19); BUN/Creat Ratio 17.0 RATIO (10-20); Calcium,Total 9.9 mg/dL (7.6-11.0); Carbon Dioxide 24.5 mmol/L (21.0-32.0); Chloride 105 mmol/L (98-108); Globulin 3.0 g/dL (2.2-4.2); Glucose 103 mg/dL (70-99); Potassium 4.3 mmol/L (3.3-5.1); Vitamin D,25 Hydroxy 45.0 ng/mL (30-100)
== END | disposition home or self-care (01) ==
PROVIDERS: PCP Family Medicine; Visit Provider Family Medicine
DX: E03.9 Hypothyroidism, unspecified (principal); E78.00 Pure hypercholesterolemia, unspecified; E55.9 Vitamin D deficiency, unspecified
CPT/HCPCS: 36415; 80053; 82306; 84439; 84443

== ENCOUNTER → 2025-09-19 | Outpatient (CLI) | payer MEDICARE, SELFPAY ==
--- NOTE | 2025-09-19 12:59 | BI_ITS ---
EXAM: SCRN MAMM (CAD)W/GARY BILAT DATE: 09/19/2025 CLINICAL HISTORY: F, Age 69 y/o , SCREENING No family history. TECHNIQUE: Procedure Code: [id number] Modality: MG Procedure: SCRN MAMM (CAD)W/GARY BILAT COMPARISON: Prior exam(s) dated September 14, 2024.. FINDINGS: TISSUE DENSITY: There are scattered areas of fibroglandular density. Bilateral Breast Mammographic Findings: No significant masses, calcifications or other abnormalities are identified. No suspicious masses, areas of developing architectural distortion, or suspicious calcifications. There has been no significant interval change. BI/SCRN MAMM (CAD)W/GARY BILAT IMPRESSION: Stable bilateral screening mammogram. OVERALL FINAL ASSESSMENT BI-RADS 1: NEGATIVE. RECOMMENDATION: Routine annual follow-up in 1 Year Additional Recommendation none A letter with findings and recommendations will be mailed to the patient. Reading Location: [place] [address]
--- NOTE | 2025-09-19 13:05 | BD_ITS ---
PROCEDURE: DEXA BONE DENSITY STUDY 09/19/2025 REASON FOR EXAM: F, age 69 y/o . Postmenopausal. TECHNIQUE: Procedure Code: BDDBD Modality: DX Procedure: DEXA BONE DENSITY STUDY COMPARISON: August 14, 2021. FINDINGS: BMD and T-SCORES Lumbar spine: 0.876 g/cm2, T-score -1.6 Levels: L1 through L4 Change from prior: Improvement of 1.1%. Left femoral neck: 0.736 g/cm2, T-score -1.0 Femoral neck comparison data not recommended for monitoring change. Left total hip: 0.877 g/cm2, T-score -0.5 Change from prior: Improvement of 1.5%. Right femoral neck: 0.751 g/cm2, T-score -0.9 Femoral neck comparison data not recommended for monitoring change. Right total hip: 0.910 g/cm2, T-score -0.3 Change from prior: Improvement of 1.2%. The World Health Organization has defined the following categories based on bone density: Normal bone density: T-score equal to or greater than -1.0 Osteopenia: T-score between -1.0 and -2.5 Osteoporosis: T-score equal to or less than -2.5 FRAX (or Comparable) Fracture Risk Assessment: 10 Year Probability of Fracture: Major Osteoporotic Fracture: 8.8% Hip Fracture: 0.9% (Note: FRAX is not to be reported in setting of normal range bone density, osteoporosis on DEXA, known history of osteoporosis, prior osteoporotic hip or vertebral fracture, or for any patient undergoing pharmacological treatment for bone loss.) The National Osteoporosis Foundation (NOF) recommends pharmacological treatment for patients with a FRAX 10-year risk of 3% or higher for a hip fracture, or 20% or higher for a major osteoporotic fracture, to prevent osteoporosis and reduce fracture risk. The patient does meet the pharmacological treatment recommendations for prevention of osteoporosis. BD/Dexa Bone Density Study IMPRESSION: OSTEOPENIA. Recommend follow-up as clinically warranted. Reading Location: [place] [address]
--- OUTSIDE RECORDS SUMMARY | 2025-09-19 16:48 | XMS RPT_ITS | CCD ---
Author Organization [facility] Care Team Providers Care Civil Draftsman Name Role Phone Dr. Miles Peguero Primary Care Provider Dr. Miles Peguero Referring Provider Dr. Geena Alcocer Attending Provider [phone] Vijay Peguero Primary Care Unavailable Vijay Peguero Referring Unavailable Geena Alcocer Attending Unavailable Geena Alcocer Referring Unavailable Vijay Peguero Primary Care Unavailable Geena Alcocer Attending Unavailable Vijay Peguero Primary Care Unavailable Vijay Peguero Attending Unavailable Medications Current Medications Medication Drug Class(es) Dates Sig (Normalized) Sig (Original) amylase 327042 unt / lipase 35454 unt / protease 334702 unt delayed release oral capsule (2 sources) Start: 09-24-2023 take 44688-625367 capsules by mouth twice daily at mealtime Fozfzd-Olklojlz-Mpk lase (Creon) 36,000-114,000- 180,000 unit capsule,delayed release(DR/EC) Active 1 CAP PO TWICE A DAY September 24, 2023 12:00am administer with meals and/or snacks 12 hr buPROPion hydrochloride 150 mg extended release oral tablet (2 sources) Aminoketone Start: 09-24-2023 take 1 tablet by mouth once daily in the morning Bupropion Hcl (Wellbutrin Sr) 150 mg tablet sustained-release 12 hr Active 150 MG PO EVERY MORNING September 24, 2023 12:00am levothyroxine sodium 0.025 mg oral tablet (7 sources) l-Thyroxine Start: 09-12-2021 take 25 ug by mouth once daily Levothyroxine Active 25 MCG PO DAILY September 12, 2021 12:00am omeprazole 40 mg delayed release oral capsule (7 sources) Proton Pump Inhibitor Start: 09-12-2021 take 40 mg by mouth once daily Omeprazole Active 40 MG PO DAILY September 12, 2021 12:00am simvastatin 20 mg oral tablet (7 sources) HMG-CoA Reductase Inhibitor Start: 09-12-2021 take 1 tablet by mouth once daily Simvastatin (Zocor) 20 mg tablet Active 20 MG PO DAILY September 12, 2021 12:00am Problems Active Problems Problem Classification Problem Date Documented Da te Episodic/Chronic Disorders of lipid metabolism (1 source) Pure hypercholesterolemi a, unspecified; Translations: [Pure hypercholesterolemi a, unspecified] Onset: 08-15-2025 Chronic Other gastrointestinal disorders (7 sources) Incontinence of feces; Translations: [Full incontinence of feces] 09-12-2021 Episodic Prolapse of female genital organs (10 sources) Disorder of rectum; Translations: [Rectocele] Onset: 09-26-2024 09-12-2021 Chronic Thyroid disorders (1 source) Hypothyroidism, unspecified; Translations: [Hypothyroidism, unspecified] Onset: 08-15-2025 Chronic Unclassified (9 sources) Herniated urinary bladder; Translations: [Cystocele] 09-12-2021 Past or Other Problems Problem Classification Problem Date Documented Da te Episodic/Chronic Other screening for suspected conditions (not mental disorders or infectious disease) (1 source) Encounter for screening mammogram for malignant neoplasm of breast; Translations: [Encounter for screening mammogram for malignant neoplasm of breast] Onset: 2024 Episodic Results Test Name Value Interpretation Reference Range Facility Comprehensive Metabolic Prof [facility] 08-14-2025 Albumin [Mass/Vol] 4.3 g/dL Normal 3.4-4.8 [facility] Comment on above: Order Comment: Order Date: 08/14/25 Order Info: 0786-1 - CMP Order Info: 3016-3 - TSH Order Info: 3024-7 - T4F Performed By: #### L 506.0400, L501.9556, L500.4050 #### [facility] [address] [place], [address] Albumin/Globulin [Mass ratio] 1.4 {ratio} Normal 0.9-2.4 [facility] Comment on above: Order Comment: Order Date: 08/14/25 Order Info: 0786-1 - CMP Order Info: 3015-3 - TSH Order Info: 3024-7 - T4F Performed By: #### L 506.0400, L501.9520, L500.4050 #### [facility] [address] [place], [address] ALK PHOS 66 U/L Normal 35-104 [facility] Comment on above: Order Comment: Order Date: 08/14/25 Order Info: 86-1 - CMP Order Info: 3015-3 - TSH Order Info: 3024-7 - T4F Performed By: #### L 506.0400, L501.9520, L500.4050 #### [facility] [address] [place], [address] ALT [Catalytic activity/Vol] 20 U/L Normal <=34 [facility] Comment on above: Order Comment: Order Date: 08/14/25 Order Info: 0786-1 - CMP Order Info: 3015-3 - TSH Order Info: 3024-7 - T4F Performed By: #### L 506.0400, L501.9520, L500.4050 #### [facility] [address] [place], [address] AST [Catalytic activity/Vol] 23 U/L Normal <=31 [facility] Comment on above: Order Comment: Order Date: 08/14/25 Order Info: 0786-1 - CMP Order Info: 6-3 - TSH Order Info: 3024-7 - T4F Performed By: #### L 506.0400, L501.9520, L500.4050 #### [facility] [address] [place], [address] Bilirubin [Mass/Vol] 0.38 mg/dL Normal 0.00-1.30 [facility] Comment on above: Order Comment: Order Date: 08/14/25 Order Info: 0786-1 - CMP Order Info: 3016-3 - TSH Order Info: 3024-7 - T4F Performed By: #### L 506.0400, L501.9520, L500.4050 #### [facility] [address] [place], [address] BUN/CRE 17.0 RATIO Normal 10-20 [facility] Comment on above: Order Comment: Order Date: 08/14/25 Order Info: 0786-1 - CMP Order Info: 3016-3 - TSH Order Info: 3024-7 - T4F Performed By: #### L 506.0400, L501.9520, L500.4050 #### [facility] [address] [place], [address] Calcium [Mass/Vol] 9.9 mg/dL Normal 7.6-11.0 [facility] Comment on above: Order Comment: Order Date: 08/14/25 Order Info: 07-1 - CMP Order Info: 3 - TSH Order Info: 3024-7 - T4F Performed By: #### L 506.0400, L501.9520, L500.4050 #### [facility] [address] [place], [address] Chloride [Moles/Vol] 105 mmol/L Normal 98-108 [facility] Comment on above: Order Comment: Order Date: 08/14/25 Order Info: 0786-1 - CMP Order Info: 3016-3 - TSH Order Info: 3024-7 - T4F Performed By: #### L 506.0400, L501.9520, L500.4050 #### [facility] [address] [place], [address] CO2 [Moles/Vol] 24.5 mmol/L Normal 21.0-32.0 [facility] Comment on above: Order Comment: Order Date: 08/14/25 Order Info: 0786-1 - CMP Order Info: 3016-3 - TSH Order Info: 3024-7 - T4F Performed By: #### L 506.0400, L501.9520, L500.4050 #### [facility] [address] [place], [address] Creatinine [Mass/Vol] 0.92 mg/dL Normal 0.70-1.20 [facility] Comment on above: Order Comment: Order Date: 08/14/25 Order Info: 0786-1 - CMP Order Info: 301-3 - TSH Order Info: 3024-7 - T4F Performed By: #### L 506.0400, L501.9520, L500.4050 #### [facility] [address] [place], [address] GAP 11 Normal 5-15 [facility] Comment on above: Order Comment: Order Date: 08/14/25 Order Info: 785-1 - CMP Order Info: 3 - TSH Order Info: 3024-7 - T4F Performed By: #### L 506.0400, L501.9520, L500.4050 #### [facility] [address] [place], [address] GFR/1.73 sq M.predicted among non-blacks MDRD (S/P/Bld) [Vol rate/Area] 68 mL/min/{1.73_m2} Normal >60 [facility] Comment on above: Order Comment: Order Date: 08/14/25 Order Info: 0786-1 - CMP Order Info: 6-3 - TSH Order Info: 3024-7 - T4F Result Comment: mL/m in/1.73m2 CKD-EPI Creatinine Equation (2020) Performed By: #### L 506.0400, L501.9520, L500.4050 #### [facility] [address] [place], [address] Globulin (S) [Mass/Vol] 3.0 g/dL Normal 2.2-4.2 [facility] Comment on above: Order Comment: Order Date: 08/14/25 Order Info: 0786-1 - CMP Order Info: 3016-3 - TSH Order Info: 3024-7 - T4F Performed By: #### L 506.0400, L501.9520, L500.4050 #### [facility] [address] [place], [address] Glucose [Mass/Vol] 103 mg/dL High 70-99 [facility] Comment on above: Order Comment: Order Date: 08/14/25 Order Info: 0786-1 - CMP Order Info: 3015-3 - TSH Order Info: 3024-7 - T4F Performed By: #### L 506.0400, L501.9520, L500.4050 #### [facility] [address] [place], [address] Potassium [Moles/Vol] 4.3 mmol/L Normal 3.3-5.1 [facility] Comment on above: Order Comment: Order Date: 08/14/25 Order Info: 785-1 - CMP Order Info: 3 - TSH Order Info: 3024-7 - T4F Performed By: #### L 506.0400, L501.9520, L500.4050 #### [facility] [address] [place], [address] Sodium [Moles/Vol] 140 mmol/L Normal 133-145 [facility] Comment on above: Order Comment: Order Date: 08/14/25 Order Info: 07-1 - CMP Order Info: 3015-3 - TSH Order Info: 3024-7 - T4F Performed By: #### L 506.0400, L501.9520, L500.4050 #### [facility] [address] [place], [address] T PROT 7.3 g/dL Normal 5.9-8.4 [facility] Comment on above: Order Comment: Order Date: 08/14/25 Order Info: 0786-1 - CMP Order Info: 3016-3 - TSH Order Info: 3024-7 - T4F Performed By: #### L 506.0400, L501.9520, L500.4050 #### [facility] [address] [place], [place], [address] Urea nitrogen [Mass/Vol] 16 mg/dL Normal 4-19 [facility] Comment on above: Order Comment: Order Date: 08/14/25 Order Info: 0786-1 - CMP Order Info: 6-3 - TSH Order Info: 3024-04 - T4F Performed By: #### L 506.0400, L501.9520, L500.4050 #### [facility] [address] [place], [address] T4 Free Directon 08-14-2025 T4 FREE DIRECT 1.10 ng/dL Normal 0.76-1.46 [facility] Comment on above: Order Comment: Order Date: 08/14/25 Order Info: 0786- - CMP Order Info: 3015-12 - TSH Order Info: 3024-04 - T4F Performed By: #### L 506.0400, L501.9520, L500.4050 #### [facility] [address] [place], [place], [id number] Thyroid Stim Hormone (TSH)on 08-14-2025 TSH 5.360 uIU/mL High 0.300-4.200 [facility] Comment on above: Order Comment: Order Date: 08/14/25 Order Info: 0786-1 - CMP Order Info: 3 - TSH Order Info: 3024-04 - T4F Performed By: #### L 506.0400, L501.9520, L500.4050 #### [facility] [address] [place], [place], [address] Vitamin D,25 Hydroxyon 08-14 Vitamin D 25-OH 45.0 ng/mL Normal 30-100 [facility] Comment on above: Order Comment: Order Date: 08/14/25 Order Info: 0786-1 - CMP Order Info: 6-3 - TSH Order Info: 3027 - T4F Result Comment: Faviola min D Status Deficiency: <20 ng/mL (50nmol/L) Insufficiency: 20-30 ng/mL (50-75 nmol/L) Sufficiency: 30-100 ng/mL (75-250 nmol/L) Toxicity: >100 ng/mL (>250 nmol/L) Performed By: #### L 506.1001 #### [facility] [address] [place], [address] [employer] Office Visit Reporton 09-26-2024 [employer] Principal Office Visit Report [facility] [address], [address] [place] [address] OFFICE VISIT Date of Service: 09/26/24 MR#: [id number] Acct: [id number] Name: OBDULIO LOPEZ Rep #: [id number] 1 : 1955 Provider: Dr. 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) Facilities Locator Required: No Is patient in pain?: No Feel stressed/tense/nervo us/anxious/difficult y sleeping: not at all Allergies No Known Allergies Allergy (Unverified 09/26/24 08:57) Medications ???Medication ???Instructions ???Recorded ???Confirmed ???Type levothyroxine 25 mcg tablet 25 mcg PO DAILY 09/12/21 09/26/24 History omeprazole 40 mg capsule,delayed 40 mg PO DAILY 09/12/21 09/26/24 History release simvastatin 20 mg tablet (Zocor) 20 mg PO DAILY 09/12/21 09/26/24 History ityshv-lkwolqcc-mnjf ase 1 cap PO BID 09/24/23 09/26/24 History 36,000-114,000-180,0 00 unit capsule,delay rel (Creon) ascorbate calcium (vitamin C) 500 500 mg PO QDAY 09/26/24 09/26/24 History mg tablet cholecalciferol (vitamin D3) 25 25 mcg PO QDAY 09/26/24 09/26/24 History mcg (1,000 unit) capsule lactobacillus combination no.9 4 4,000 mmu cells PO QDAY 09/26/24 09/26/24 History billion cell capsule (Adult 50 Plus Probiotic) Is last menstrual period known: No Post menopausal: Yes Patient : No : No PFSH Medical History Hyperlipidemia Thyroid disorder Surgical History History of delivery Family History Mother Pancreatic cancer Brother Heart disease Social History (Updated 09/26/24 @ 09:00 by Mari Alvarez) number of children: 3 current occupational status: retired Smoking Status: Never smoker alcohol intake: current details: social substance use type: does not use caffeine: Yes what type of physical activity do you participate in: walking seatbelt use: always do you feel safe at home: Yes additional social history: Jamie History 3 Elective abortions Hx Para 3 Spontaneous abortions Hx # Term Pregnancies Ectopic pregnancies Hx # Pregnancies Multiple births # of living children Past Pregnancies Del. Date Name GA/Weeks Outcome Route Bth Weight Gen Labor Lgth Anesthesia Del Locatn Provider FOB Unknown 1982 Link Unknown 1984 Igor Unknown 1990 Jason [facility] Encounter for routine gynecological examination Details: OBDULIO LOPEZ is a 68 year old who presents for annual exam. Last PAP: 09/12/2021 - normal History of abnormal PAP: Last mammogram: 09/14/2024 - normal History of abnormal mammogram: Colon cancer screening: colonoscopy within the last 5 years - normal results Other preventative health care screenings: Dr. Peguero is PCP - orders routine labs Female Reproductive History Questions: metorrhagia: No, sexually active: Yes, dyspareunia: No and PCB: No Menopausal Symptoms: No hot flashes, No night sweats, No weight change, No mood changes, No difficulty concentrating, No sleep problems and No change in libido ROS Const Constitutional: Reports as per HPI and fatigue; Denies increased appetite, poor appetite, night sweats, weight gain or weight loss Cardio Card: Denies chest pain Resp Resp: Denies cough or dyspnea GI GI: Reports as per HPI; Denies abdominal pain, bloating, constipation, nausea or vomiting : Reports as per HPI and other; Denies difficulty voiding, dysuria, hematuria, hot flashes, nipple discharge, pelvic pain, prolapse symptoms, urinary frequency, urinary incontinence, urinary urgency, vaginal discharge, vaginal dryness, vaginal odor or vaginal pruritus Skin Skin/Breast: Denies changing lesions, breast mass, breast pain, breast skin changes or nipple discharge Psych Psych: Reports depression; Denies anxiety, change in libido or difficulty concentrating Exam Const General: cooperative, healthy appearing, comfortable, no acute distress, well developed and well groomed [facility] Head: normal to inspection and normocephalic Ears: hearing grossly normal bilaterally and external ears normal Nose: external nose normal Face and sinus: normal facial exam Neck Neck: normal visual inspection, full ROM and no lymphadenopathy Thyroid: thyroid normal Chest Chest palpation inspection: normal inspection of the chest Breast inspection: normal inspection of the breasts and normal inspection of the axillae Breast palpation: normal palpation of the breasts, normal palpation of (more content not included)... Normal [facility] SCRN MAMM (CAD)W/GARY BILATo n 09-14-2024 SCRN MAMM (CAD)W/GARY BILAT [facility] [address] [place] [id number] SCRN MAMM (CAD)W/GARY BILAT MR#: [id number] Acct: [id number] Name: OBDULIO LOPEZ Rep #: [id number] : 1955 F 68 From: Ronn ho MD PCP: Dr. Vijay Peguero MD Status: [facility] Study: SCRN MAMM (CAD)W/GARY BILAT Date of Exam: 02/02 Exam# [id number] Ordering Dr: Geena Alcocer [id number] MAMMOGRAPHY - BILATERAL SCREENING REASON FOR EXAM: Female, 68 years old. Routine annual screening examination. PERTINENT HISTORY: Non-contributory. TECHNIQUE: Digital bilateral breast gary (3D mammographic acquisition) in the CC and MLO projections. 2-D mediolateral oblique (MLO) and craniocaudad (CC) views of both breasts were obtained. CAD: Full Field Digital Mammography with Computer Added Detection was performed. COMPARISON: Comparison is made with prior study dated August 27, 2023 and August 12, 2022. FINDINGS: Breast Composition: There are scattered areas of fibroglandular density. There are no dominant masses or suspicious calcifications. No other significant abnormalities are identified. There has been no significant change since the prior study. BI/SCRN MAMM (CAD)W/GARY BILAT IMPRESSION: Stable bilateral screening mammogram. Yearly follow-up mammogram recommended. (A) ASSESSMENT CATEGORY: BIRADS Category 1: Negative. A letter regarding these results will be sent to the patient by the facility within 30 days. Approximately 10% of breast cancers are not detected by mammography. A normal mammogram should not delay biopsy of a clinically suspicious abnormality. [id number] Electronically Signed: Ronn Groves MD at 8:47 EST , CC: Dr. Vijay Peguero MD; Dr. Geena Alcocer MD Utility Spray Operator: Signed Normal [facility] Serum or plasma thyroid stim ulating hormone (TSH) measurement (units/volume)Ordered By: Miles Peguero on 12-07-2023 TSH Qn 2.07 uIU/mL 0.358-3.74 [facility] Basophil percentageOrdered B y: Miles Peguero on 08-07-2023 Bilirubin [Mass/Vol] 0.50 mg/dL 0.20-1.00 [facility] Comment on above: For patients on eltr ombopag therapy, use of Dimension Cobden TBIL is not recommended. Chloride [Moles/Vol] 111 mmol/L 98-107 [facility] Cholesterol [Mass/Vol] 180 mg/dL <200 [facility] Comment on above: <200 mg/dL Desirable 200-240 mg/dL Borderline >240 mg/dL High Risk Glucose [Mass/Vol] 98 mg/dL 74-106 [facility] Potassium [Moles/Vol] 3.8 mmol/L 3.5-5.1 [facility] Protein [Mass/Vol] 7.0 g/dL 6.4-8.2 [facility] Sodium [Moles/Vol] 137 mmol/L 136-145 [facility] Triglyceride [Mass/Vol] 167 mg/dL <199 [facility] Comment on above: The drugs N-Acetylcy steine and Metamizole may falsely depress this assay.Serum Triglycerides Reference Interval Normal <150 mg/dL Borderline high 150 - 199 mg/dL High 200 - 499 mg/dL Very High > or = 500 mg/dL Laboratory - Chemistry and C hemistry - challengeOrdered By: Miles Peguero on 08-07-2023 ALP [Catalytic activity/Vol] 72 U/L 45-117 [facility] ALT [Catalytic activity/Vol] 24 U/L 13-56 [facility] CO2 [Moles/Vol] 23.0 mmol/L 21.0-32.0 [facility] Free T4 [Mass/Vol] 1.26 ng/dL 0.76-1.46 [facility] Globulin (S) [Mass/Vol] 3.6 g/dL 2.2-4.2 [facility] Urea nitrogen/Creatinine [Mass ratio] 19.2 mg/mg 10-20 [facility] No Panel InformationOrdered By: Miles Peguero on 08-07-2023 Estimated GFR (MDRD) Amer 94 mL/min >60 [facility] Comment on above: GFR Calc Estimated GFR (MDRD) Non-Af Amer 78 mL/min >60 [facility] Comment on above: Non- GFR Calc Free Triiodothyronine (T3) pg/dL 2.6 pg/mL 2.18-3.98 [facility] Thyroid Stimulating Hormone (TSH) 0.23 uIU/mL 0.358-3.74 [facility] Vitamin D 25-Hydroxy 75.0 ng/mL [facility] Comment on above: Vitamin D 25(OH) Sta tus Range Deficiency <20 ng/mL (50nmol/L) Insufficiency 20 - 30 ng/mL (50 - 75 nmol/L) Sufficiency 30 - 100 ng/mL (75 - 250 nmol/L) Toxicity >100 ng/mL (>250 nmol/L) Serum or plasma albumin kaylan urement (mass/volume)Ordered By: Miles Peguero on 08-07-2023 Albumin [Mass/Vol] 3.4 g/dL 3.2-5.0 [facility] Serum or plasma albumin/glob ulin mass ratioOrdered By: Miles Peguero on 08-07-2023 Albumin/Globulin [Mass ratio] 0.9 {ratio} 0.9-2.4 [facility] Serum or plasma calcium kaylan urement (mass/volume)Ordered By: Miles Peguero on 08-07-2023 Calcium [Mass/Vol] 9.0 mg/dL 8.5-10.1 [facility] Serum or plasma cholesterol in HDL measurement (mass/volume)Ordered By: Miles Peguero on 08-07-2023 Cholesterol in HDL [Mass/Vol] 50 mg/dL >40 [facility] Comment on above: The drugs N-Acetylcy steine and Metamizole may falsely depress this assay. Reference Range HDL <40 mg/dL Low HDL Cholesterol HDL >or= 60 mg/dL High HDL Cholesterol Serum or plasma cholesterol in VLDL measurement (mass/volume)Ordered By: Miles Peguero on 08-07-2023 Cholesterol in VLDL [Mass/Vol] 33 mg/dL 5-40 [facility] Serum or plasma creatinine m easurement (mass/volume)Ordered By: Miles Peguero on 08-07-2023 Creatinine [Mass/Vol] 0.78 mg/dL 0.55-1.02 [facility] Comment on above: The validity of the calculated GFR & GFRAA in patients over 70 years has not been determined. Clinical correlation is essential. Serum or plasma low density lipoprotein (LDL) cholesterol measurement (mass/volume)Ordered By: Miles Peguero on 08-07-2023 Cholesterol in LDL [Mass/Vol] 97 mg/dL 0-130 [facility] Serum or plasma urea nitroge n measurement (mass/volume)Ordered By: Miles Peguero on 08-07-2023 Urea nitrogen [Mass/Vol] 15 mg/dL 7-18 [facility] Thin prep Papanicolaou smear with manual screeningOrdered By: Miles Peguero on 08-07-2023 Thin prep Papanicolaou smear with manual screening 13 U/L 15-37 [facility] Thin prep Papanicolaou smear with manual screening 3 5-15 [facility] No Panel InformationOrdered By: Miles Peguero on 04-30-2023 Stool Pancreatic Elastase 95 >200 [facility] Comment on above: Result Units: ug Lenore st./gResults verified by repeat testing Severe Pancreatic Insufficiency: <100 Moderate Pancreatic Insufficiency: 100 - 200 Normal: >200Performed at: [facility] [id number] Director: Yuridia Veloz MD, Phone: [phone] Ova and parasitesOrdered By: Miles Peguero on 04-30-2023 Ova and parasites identified LM Nom (Unsp spec) [facility] Stool enteric pathogen panel by probe and target amplification methodOrdered By: Miles Peguero on 04-30-2023 Gastrointestinal pathogens panel AUDREY+probe (Stl) [facility] Stool gastrointestinal hemog lobin detection by immunologic methodOrdered By: Miles Peguero on 04-30-2023 Lower GI hemoglobin IA Ql (Stl) [facility] Stool lactoferrin detection by immunoassayOrdered By: Miles Peguero on 04-30-2023 Lactoferrin IA Ql (Stl) [facility] Absolute lymphocyte countOrd ered By: Miles Peguero on 04-28-2023 Lymphocytes Auto (Unsp spec) [#/Vol] 3.26 10*3/uL 0.83-4.51 [facility] Basophil percentageOrdered B y: Miles Peguero on 04-28-2023 Amylase [Catalytic activity/Vol] 30 U/L 25-115 [facility] Basophils/100 WBC (Bld) 1.2 % 0-1 [facility] Bilirubin [Mass/Vol] 0.30 mg/dL 0.20-1.00 [facility] Comment on above: For patients on eltr ombopag therapy, use of Dimension Cobden TBIL is not recommended. Chloride [Moles/Vol] 109 mmol/L 98-107 [facility] Eosinophils/100 WBC (Bld) 3.1 % 0-5 [facility] Glucose [Mass/Vol] 76 mg/dL 74-106 [facility] Neutrophils (Bld) [#/Vol] 3.5 10*3/uL 2.0-7.7 [facility] Neutrophils/100 WBC (Bld) 45.6 % 47-70 [facility] Potassium [Moles/Vol] 4.0 mmol/L 3.5-5.1 [facility] Protein [Mass/Vol] 7.3 g/dL 6.4-8.2 [facility] Sodium [Moles/Vol] 141 mmol/L 136-145 [facility] WBC (Bld) [#/Vol] 7.7 10*3/uL 4.4-11.0 [facility] Blood erythrocytes count (nu mber/volume)Ordered By: Miles Peguero on 04-28-2023 RBC (Bld) [#/Vol] 4.67 10*6/uL 4.2-5.4 [facility] Blood hemoglobin measurement (mass/volume)Ordered By: Miles Peguero on 04-28-2023 Hemoglobin (Bld) [Mass/Vol] 13.6 g/dL 12.0-15.0 [facility] Blood lymphocytes/100 leukoc ytesOrdered By: Miles Peguero on 04-28-2023 Lymphocytes/100 WBC (Bld) 42.6 % 19-41 [facility] Blood monocytes/100 leukocyt esOrdered By: Miles Peguero on 04-28-2023 Monocytes/100 WBC (Bld) 7.4 % 0-10 [facility] Blood platelet mean volumeOr dered By: Miles Peguero on 04-28-2023 Platelet mean volume (Bld) [Entitic vol] 10.1 fL 6.2-12.0 [facility] Chocolate RASTOrdered By: Roya Peguero on 04-28-2023 Chocolate IgE Qn (S) <0.10 kU/L Class 0 [facility] Comment on above: Performed at: - [address] [id number] Director: Yuridia Veloz MD, Phone: [phone] Determination of erythrocyte mean corpuscular volume (MCV)Ordered By: Miles Peguero on 04-28-2023 MCV (RBC) [Entitic vol] 89.5 fL 81-99 [facility] Erythrocyte sedimentation ra teOrdered By: Miles Peguero on 04-28-2023 ESR (Bld) [Velocity] 14 mm/h 0-30 [facility] Hematocrit Auto (Bld) [Volum e fraction]Ordered By: Miles Peguero on 04-28-2023 Hematocrit (Bld) [Volume fraction] 41.8 % 37-47 [facility] - Chemistry and C hemistry - challengeOrdered By: Miles Peguero on 04-28-2023 ALP [Catalytic activity/Vol] 68 U/L 45-117 [facility] ALT [Catalytic activity/Vol] 23 U/L 13-56 [facility] CO2 [Moles/Vol] 27.0 mmol/L 21.0-32.0 [facility] Free T4 [Mass/Vol] 1.23 ng/dL 0.76-1.46 [facility] Globulin (S) [Mass/Vol] 3.6 g/dL 2.2-4.2 [facility] Lipase [Catalytic activity/Vol] 38 U/L 13-75 [facility] Comment on above: Please note:LIPASE r evised reference range effective 23. New Lipase methodology. Expected to produce lower values than the previous assay method. NEW Reference Range: 13 - 75 U/L Urea nitrogen/Creatinine [Mass ratio] 18.8 mg/mg 10-20 [facility] - Hematology and Cell countsOrdered By: Miles Peguero on 04-28-2023 Erythrocyte distribution width (RBC) [Entitic vol] 41.6 fL 35.1-43.9 [facility] Erythrocyte distribution width (RBC) [Ratio] 12.7 % 11.6-14.6 [facility] Immature granulocytes/100 WBC (Bld) 0.100 % 0.0-0.9 [facility] Comment on above: IG% - Immature Granu locytes (promyelocytes, myelocytes and metamyelocytes) > 1% indicates that a LEFT SHIFT is Present. MCH (RBC) [Entitic mass] 29.1 pg 27.0-32.0 [facility] Nucleated RBC/100 WBC (Bld) [Ratio] 0 % 0-5 [facility] - Miscellaneous t estsOrdered By: Miles Peguero on 04-28-2023 Service comment (Unsp spec) [Interp] Comment . [facility] Comment on above: Levels of Specific I gE Class Description of Class ----- < 0.10 0 Negative 0.10 - 0.31 0/I Equivocal/Low 0.32 - 0.55 I Low 0.56 - 1.40 II Moderate 1.41 - 3.90 III High 3.91 - 19.00 IV Very High 19.01 - 100.00 V Very High >100.00 Very High MCHC Auto (RBC) [Mass/Vol]Or dered By: Miles Peguero on 04-28-2023 MCHC (RBC) [Mass/Vol] 32.5 g/dL 32-36 [facility] No Panel InformationOrdered By: Miles Peguero on 04-28-2023 Estimated GFR (MDRD) Amer 100 mL/min >60 [facility] Comment on above: GFR Calc Estimated GFR (MDRD) Non-Af Amer 83 mL/min >60 [facility] Comment on above: Non- GFR Calc Free Triiodothyronine (T3) pg/dL 2.6 pg/mL 2.18-3.98 [facility] [employer] Allergens (RAST) Negative . [facility] Comment on above: Allergens in this mi x are: Blue mussel Fish [place] Shrimp Tuna Thyroid Stimulating Hormone (TSH) 0.12 uIU/mL 0.358-3.74 [facility] Platelets bldOrdered By: Cesilia Peguero on 04-28-2023 Platelets (Bld) [#/Vol] 331 10*3/uL 150-450 [facility] Serum Helicobacter pylori Ig G antibody assay (units/volume)Ordered By: Miles Peguero on 04-28-2023 H. pylori IgG Qn (S) 0.16 0.00-0.79 [facility] Comment on above: Result Units: Index Value Negative <0.80 Equivocal 0.80 - 0.89 Positive >0.89Performed at: [facility] [address] [id number] Director: Kg Li PhD, Phone: [phone] Serum beef IgE antibody assa y (units/volume)Ordered By: Miles Peguero on 04-28-2023 Beef IgE Qn (S) <0.10 kU/L Class 0 [facility] Serum corn IgE antibody assa y (units/volume)Ordered By: Miles Peguero on 04-28-2023 [place] IgE Qn (S) <0.10 kU/L Class 0 [facility] Serum cow milk IgE antibody assay (units/volume)Ordered By: Miles Peguero on 04-28-2023 Cow milk IgE Qn (S) <0.10 kU/L Class 0 [facility] Serum or plasma albumin kaylan urement (mass/volume)Ordered By: Miles Peguero on 04-28-2023 Albumin [Mass/Vol] 3.7 g/dL 3.2-5.0 [facility] Serum or plasma albumin/glob ulin mass ratioOrdered By: Miles Peguero on 04-28-2023 Albumin/Globulin [Mass ratio] 1.0 {ratio} 0.9-2.4 [facility] Serum or plasma calcium kaylan urement (mass/volume)Ordered By: Miles Peguero on 04-28-2023 Calcium [Mass/Vol] 9.4 mg/dL 8.5-10.1 [facility] Serum or plasma creatinine m easurement (mass/volume)Ordered By: Miles Peguero on 04-28-2023 Creatinine [Mass/Vol] 0.74 mg/dL 0.55-1.02 [facility] Comment on above: The validity of the calculated GFR & GFRAA in patients over 70 years has not been determined. Clinical correlation is essential. Serum or plasma urea nitroge n measurement (mass/volume)Ordered By: Miles Peguero on 04-28-2023 Urea nitrogen [Mass/Vol] 14 mg/dL 04-28 [facility] Serum peanut IgE antibody as say (units/volume)Ordered By: Miles Peguero on 04-28-2023 Peanut IgE Qn (S) <0.10 kU/L Class 0 [facility] Serum pork IgE antibody assa y (units/volume)Ordered By: Miles Peguero on 04-28-2023 Pork IgE Qn (S) <0.10 kU/L Class 0 [facility] Serum soybean IgE antibody a ssay (units/volume)Ordered By: Miles Peguero on 04-28-2023 Soybean IgE Qn (S) <0.10 kU/L Class 0 [facility] Serum wheat IgE antibody ass ay (units/volume)Ordered By: Miles Peguero on 04-28-2023 Wheat IgE Qn (S) <0.10 kU/L Class 0 [facility] Serum whole egg IgE antibody assay (units/volume)Ordered By: Miles Peguero on 04-28-2023 Whole Egg IgE Qn (S) <0.10 kU/L Class 0 [facility] Thin prep Papanicolaou smear with manual screeningOrdered By: Miles Peguero on 04-28-2023 Thin prep Papanicolaou smear with manual screening 18 U/L 15-37 [facility] Thin prep Papanicolaou smear with manual screening 5 5-15 [facility] Basophil percentageon 2021 Bilirubin [Mass/Vol] 0.30 mg/dL 0.20-1.00 [facility] Work Phone: Comment on above: For patients on eltr ombopag therapy, use of Dimension [place] TBIL is not recommended. Chloride [Moles/Vol] 111 mmol/L 98-107 [facility] Work Phone: Cholesterol [Mass/Vol] 194 mg/dL <200 [facility] Work Phone: Comment on above: <200 mg/dL Desirable 200-240 mg/dL Borderline >240 mg/dL High Risk Glucose [Mass/Vol] 96 mg/dL 74-106 [facility] Work Phone: Potassium [Moles/Vol] 3.9 mmol/L 3.5-5.1 [facility] Work Phone: Protein [Mass/Vol] 7.0 g/dL 6.4-8.2 [facility] Work Phone: Sodium [Moles/Vol] 142 mmol/L 136-145 [facility] Work Phone: Triglyceride [Mass/Vol] 179 mg/dL <199 [facility] Work Phone: Comment on above: The drugs N-Acetylcy steine and Metamizole may falsely depress this assay.Serum Triglycerides Reference Interval Normal <150 mg/dL Borderline high 150 - 199 mg/dL High 200 - 499 mg/dL Very High > or = 500 mg/dL Laboratory - Chemistry and C hemistry - challengeon 08-04-2022 ALP [Catalytic activity/Vol] 68 U/L 45-117 [facility] Work Phone: ALT [Catalytic activity/Vol] 25 U/L 13-56 [facility] Work Phone: CO2 [Moles/Vol] 25.0 mmol/L 21.0-32.0 [facility] Work Phone: Free T4 [Mass/Vol] 1.25 ng/dL 0.76-1.46 [facility] Work Phone: Globulin (S) [Mass/Vol] 3.5 g/dL 2.2-4.2 [facility] Work Phone: Urea nitrogen/Creatinine [Mass ratio] 27.3 mg/mg 10-20 [facility] Work Phone: No Panel Informationon 08-04 Estimated GFR (MDRD) Amer 102 mL/min >60 [facility] Work Phone: Comment on above: GFR Calc Estimated GFR (MDRD) Non-Af Amer 84 mL/min >60 [facility] Work Phone: Comment on above: Non- GFR Calc Thyroid Stimulating Hormone (TSH) 0.13 uIU/mL 0.358-3.74 [facility] Work Phone: Vitamin D 25-Hydroxy 57.5 ng/mL [facility] Work Phone: Comment on above: Vitamin D 25(OH) Sta tus Range Deficiency <20 ng/mL (50nmol/L) Insufficiency 20 - 30 ng/mL (50 - 75 nmol/L) Sufficiency 30 - 100 ng/mL (75 - 250 nmol/L) Toxicity >100 ng/mL (>250 nmol/L) Serum or plasma albumin kaylan urement (mass/volume)on 08-04-2022 Albumin [Mass/Vol] 3.5 g/dL 3.2-5.0 [facility] Work Phone: Serum or plasma albumin/glob ulin mass ratioon 08-04-2022 Albumin/Globulin [Mass ratio] 1.0 {ratio} 0.9-2.4 [facility] Work Phone: Serum or plasma calcium kaylan urement (mass/volume)on 08-04-2022 Calcium [Mass/Vol] 9.3 mg/dL 8.5-10.1 [facility] Work Phone: Serum or plasma cholesterol in HDL measurement (mass/volume)on 08-04-2022 Cholesterol in HDL [Mass/Vol] 56 mg/dL >40 [facility] Work Phone: Comment on above: The drugs N-Acetylcy steine and Metamizole may falsely depress this assay. Reference Range HDL <40 mg/dL Low HDL Cholesterol HDL >or= 60 mg/dL High HDL Cholesterol Serum or plasma cholesterol in VLDL measurement (mass/volume)on 08-04-2022 Cholesterol in VLDL [Mass/Vol] 36 mg/dL 5-40 [facility] Work Phone: Serum or plasma creatinine m easurement (mass/volume)on 08-04-2022 Creatinine [Mass/Vol] 0.73 mg/dL 0.55-1.02 [facility] Work Phone: Comment on above: The validity of the calculated GFR & GFRAA in patients over 70 years has not been determined. Clinical correlation is essential. Serum or plasma low density lipoprotein (LDL) cholesterol measurement (mass/volume)on 08-04-2022 Cholesterol in LDL [Mass/Vol] 102 mg/dL 0-130 [facility] Work Phone: Serum or plasma urea nitroge n measurement (mass/volume)on 08-04-2022 Urea nitrogen [Mass/Vol] 20 mg/dL 7-18 [facility] Work Phone: Thin prep Papanicolaou smear with manual screeningon 08-04-2022 Thin prep Papanicolaou smear with manual screening 18 U/L 15-37 [facility] Work Phone: Thin prep Papanicolaou smear with manual screening 6 5-15 [facility] Work Phone: Vital Signs Date Time Vital Sign Value Performing Clinician Faci lity 09-24-2023 08:43-0500 Body height 162.[address] Miles fall Work Phone: [facility] 09-24-2023 08:38-0500 Body mass index (BMI) [Ratio] 24.5 kg/m2 Dr. Miles Peguero Work Phone: [facility] 09-24-2023 08:38-0500 Body weight 64.[address] Miles Verde y Work Phone: [facility] Encounters Encounter Date Encounter Type Care Provider Facility Start: 08-14-2025 ambulatory Vijay Dominique lity:[facility] Start: 09-26-2024 Encounter for gynecological examination (general) (routine) with abnormal findings Geena Alcocer [facility] Start: 09-26-2024 End: 09-26-2024 ambulatory Vijay Peguero Facility:[facility] Start: 09-14-2024 End: 09-14-2024 ambulatory Geena Alcocer Facility:[facility] Start: 12-07-2023 End: 12-07-[address] Miles Peguero Work Phone: [facility] Work Phone: Start: 12-07-2023 End: 12-07-[address] Miles Peguero Work Phone: [facility] Start: 09-24-2023 End: 09-24-[address] Miles Peguero Work Phone: [facility] Work Phone: Start: 09-21-2023 End: 09-21-[address] Miles Peguero Work Phone: [facility] Work Phone: Start: 09-21-2023 End: 09-21-[address] Miles Peguero Work Phone: [facility] Therapy Work Phone: Start: 09-02-2023 Registered Recurring [facility] Work Phone: Start: 08-27-2023 End: 08-27-2023 ambulatory [facility] Work Phone: Start: 08-27-2023 End: 08-27-2023 Patient encounter procedure [facility] D[facility]ometry Work Phone: Start: 08-07-2023 End: 08-07-2023 ambulatory [facility] Work Phone: Start: 08-07-2023 End: 08-07-2023 Patient encounter procedure [facility] Start: 04-30-2023 End: 04-30-2023 Patient encounter procedure [facility] Start: 04-28-2023 End: 04-28-2023 ambulatory [facility] Work Phone: Start: 04-28-2023 End: 04-28-2023 Patient encounter procedure [facility], [facility] Start: 08-12-2022 End: 08-12-2022 ambulatory [facility] Work Phone: Start: 08-12-2022 End: 08-12-2022 Patient encounter procedure [facility] Breast Imaging Start: 08-04-2022 End: 08-04-2022 ambulatory [facility] Work Phone: Start: 08-04-2022 End: 08-04-2022 [facility] Date Procedure Procedure Detail Performing Clinician Start: 08-27-2023 Dual energy X-ray absorptiometry Start: 08-27-2023 Screening mammography Start: 04-30-2023 Gastric Occult Blood Start: 04-30-2023 Lactoferrin measurement Start: 04-30-2023 Measurement of occul t blood in stool specimen using immunoassay Start: 04-30-2023 Nucleic acid assay Start: 04-30-2023 Ova OR parasites identification Start: 08-12-2022 Screening mammography Plan of Treatment Date Care Activity Detail Author Start: 04-30-2023 Elastase, pancreatic (el-1), fecal; quantitative [facility] Ova and parasites id entified in Unspecified specimen by Light microscopy [facility] Payers Date Payer Category Payer Private Health Insurance [id number] 2024 Self-pay [id number] 2023 Medicare [id number] 2012 Unknown [id number] Medicare MEDICARE A ONLY [id number] Unknown [facility] [id number] Unknown [id number] Unknown [id number] Social History Date Type Detail Facility Start: 09-12-2021 End: 09-24-2023 Tobacco smoking status NHIS Unknown if ever smoked [facility] Start: 1955 Sex Assigned At Female [facility] Discharge summary 09-21-2023 Note Date & Type Note Facility 09-21-2023 Discharge summary Note Date/Time September 21, 2023 8:52am [facility] Physical Therapy [facility] [address] [place] [address] / REHABILITATION SERVICES DISCHARGE SUMMARY MR#: [id number] Acct: [id number] Name: OBDULIO LOPEZ Rep #: [id number] 03 : 1955 67 From: Landon Cuevas DPT, OCS, CSCS Referring Dr.: Dr. Miles Peguero MD Statu s: REG RCR Insurance: [employer] MEDICARE PPO SELF PAY INSURANCE Discharge Summary D/C summary: It has been my pleasure to treat OBDULIO LOPEZ referred by Dr. Miles Peguero MD, with the diagnosis of L piriformis syndrome for a total of 10 visit(s). Discharge Date: 09/21/23 Please see the following information for a summary of their discharge status. Subjective Subjective: Feeling pretty good lately. This weekend had no pain. Sometimes down lateral leg is tender awareness but not annoying. Activities at home are normal. Squatted with grandson this weekend without a problem. No f/u with doctor. HEP going well daily. Walked 4 miles 5 days per week and feels Ok afterwards. Pain l leg: Pain Intensity (Out of 10): 2 Overall Improvement % Improvement: 80 Objective Objective/Function: Walking and steps without antalgia or pain. No rail needed. and butt kicks without issues. Heel raises pain free. Goals Goal 1:: Pain in L leg 85% better and 1/10 at worst Goal Progress: 80% Goal 2:: Patient walk up steps without pain Goal Progress: Goal Met Goal 3:: sleep without waking consistently Goal Progress: Goal Met Goal 4:: LEFS 72 Goal Progress: Progressing Plan Plan: d/c to HEp adn gym D/C Information d/c sentence: If there are questions or concerns regarding this patient's physical therapy, please feel free to call me at [phone]. Thank you for the referral of thispatient. Sincerely, Landon Cuevas, DENAT, OCS, CSCS Balance/Gait/Functional tests Balance/Special Test Scores Lower Extremity Functional Score: 57 Improvement % Improvement: 80 <Electronically signed by Landon Cuevas DPT, OCS, CSCS> 09/21/23 0852 CC: Dr. Miles Peguero MD ~ EBG Signed [facility] Work Phone: Evaluation note Note Date & Type Note Facility Evaluation note No assessment information availa ble [facility] Work Phone: Evaluation note Note Date & Type Note Facility Evaluation note Diagnosis Onset Date Cystocele acute Rectocele acute Encounter for routine gyneco logical examination noneactive [facility] Work Phone: Family History No Family History Records Found Relationship Condition Age at Onset Recorded Date/T smitha mother Malignant neoplasm of colon Unknown Malignant neoplasm of pancreas Unknown brother Cardiac disease Unknown Relationship Condition Age at Onset Recorded Date/T smitha mother Malignant neoplasm of pancreas Unknown brother Cardiac disease Unknown Chief Complaint and Reason for Visit Chief Complaint SCREENING Chief Complaint POST VEE DYSFUNCTION OF PELVIS PT HAS RX REQUEST LANDON Chief Complaint POST VEE DYSFUNCTION OF PELVIS PT HAS RX REQUEST 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) Reason for Visit Cystocele Rectocele Encounter for routine gynecological examination Summary Purpose Advance Directives No Advanced Directives Records Found Additional Source Comments Goals (unrecognized section and content) Goals may be documented in a n alternate sectionGoals may be documented in an alternate sectionGoals may be documented in an alternate sectionGoals may be documented in an alternate sectionGoals may be documented in an alternate sectionGoals may be documented in an alternate sectionGoals may be documented in an alternate section Care Teams (unrecognized sec tion and content) Team Status: Active Member Role Status Dates Dr. Miles Peguero MD Family Provider Active Dr. Miles Peguero MD Primary Care Provider Activ e Team Status: Inactive Member Role Status Dates Dr. Miles Peguero MD Primary Care Provider, Atte nding Provider Active Team Status: Active Member Role Status Dates Dr. Miles Peguero MD Primary Care Provider, Atte nding Provider Active Team Status: Inactive Member Role Status Dates Dr. Miles Peguero MD Primary Care Provider Activ e Dr. Geena Alcocer MD Attending Provider, Referr ing Provider Active Team Status: Active Member Role Status Dates Dr. Miles Peguero MD Primary Care Provider, Attending Provider, Referring Provider Active Team Status: Inactive Member Role Status Dates Dr. Miles Peguero MD Primary Care Provider, Refe rring Provider Active Dr. Geena Alcocer MD Attending Provider Active Team Status: Inactive Member Role Status Dates Dr. Miles Peguero MD Primary Care Provider, Attending Provider, Referring Provider Active INFORMATION SOURCE (unrecogn ized section and content) DATE CREATED AUTHOR 08/16/2025 [facility] FOR RECORDS PERTAINING TO PATIENTS WHO ARE OR HAVE BEEN ENROLLED IN A CHEMICAL DEPENDENCY/SUBSTANCEABUSE PROGRAM, SOME INFORMATION MAY BE OMITTED. This clinical summary was aggregated from multiple sources. Caution should be exercised in using it in the provision of clinical care. This summary normalizes information from multiple sources, and as a consequence, information in this document may materially change the coding, format and clinical context of patient data. In addition, data may be omitted in some cases. CLINICAL DECISIONS SHOULD BE BASED ON THE PRIMARY CLINICAL RECORDS. [employer] provides no warranty or guarantee of the accuracy or completeness of information in this document.
== END | disposition home or self-care (01) ==
PROVIDERS: PCP Family Medicine; Referring Provider Family Medicine; Visit Provider Family Medicine
DX: Z12.31 Encounter for screening mammogram for malignant neoplasm of breast (principal); Z78.0 Asymptomatic menopausal state
CPT/HCPCS: 77063; 77067; 77080